=== PATIENT | female | born 1970 | race Caucasian/White ===

== ENCOUNTER 2016-12-09 17:09 | Emergency (ER) | payer MEDICARE, MEDICAID ==
[~2016-12-09] VITALS: Ht 157.5 cm; Wt 65.8 kg
[~2016-12-09 17:09] MED LIST: ATIVAN0.5 MG PO; ATIVAN1 M1 PO; BACTRIM DS 8001 TA1 PO; CELEXA10 MG PO; CELEXA20 MG PO; CELEXA40 MG PO; CLINDAMYCIN HC300 MG PO; CLONAZEPAM 1MG T1 MG PO; CLONIDINE HCL0.2 MG PO; CLONIDINE HYDR0.1 MG PO; COGENTIN GENERIC1 MG PO; COLACE100 MG PO; DEPO-PROVER150 MG/M2 IM; DIFLUCAN100 MG PO; DIPHENHYDRAMINE50 MG PO; EFFEXOR XR 75MG75 MG PO; FLEXERIL10 M1 PO; FLEXERIL10 MG PO; FLEXERIL5 MG PO; GEODON20 MG PO; GEODON80 MG PO; GLYCOLAX17 GM/DOSE PO; HALDOL 1MG. TABL1 MG PO; HYDROCODON-ACETAMINO PO; HYDROCODONE1 TABLET PO; HYDROXYZINE HYD25 M1 PO; IBU-4400 MG PO; IBU-8800 MG PO; IBUPROFEN 600M600 MG PO; IBUPROFEN400 MG PO; IBUPROFEN600 MG PO; KEFLEX 500MG.500 MG PO; KLONOPIN1 M1 PO; KLONOPIN1 MG PO; LEVOTHYROXIN0.025 M1 PO; LEVOTHYROXIN0.075 M2 PO; LORTAB 10/3251 TAB PO; LORTAB 5/500 501 TAB PO; LORTAB 7.5/3251 TAB PO; MEDROL 4MG. DOSE4 MG PO; MELOXICAM15 MG PO; METHADONE10 MG PO; NEURONTIN 300M300 MG PO; NEURONTIN800 MG PO; NORCO 325 MG-101 TAB PO; OMEPRAZOLE20 MG PO; OXYCODONE30 MG PO; PERCOCET 10 MG1 EACH PO; PERCOCET 325 MG1 TA3 PO; PERCOCET 5/3251 EACH PO; PHENERGAN 25MG.25 M1 PO; PRAVASTATIN 20M20 MG PO; PRAVASTATIN20 MG PO; PREDNISONE 20MG20 MG PO; PRENATAL VITAMI1 TA4 PO; PRENATAL1 TA4 PO; PROAIR HFA0.09 MG/AC INH; PROZAC 20MG CAP20 MG PO; REMERON30 MG; SAPHRIS5 MG SL; SEROQUEL XR150 MG PO; SPIRIVA HA1 PUFF/INH INH; SPIRONOLACTONE25 MG PO; SYNTHROID 0.00.05 MG PO; SYNTHROID0.05 MG PO; TIZANIDINE4 MG PO; TOPIRAGEN100 MG PO; TORADOL10 M1 PO; TRAMADOL 50MG T50 M1 PO; TRAMADOL 50MG T50 MG PO; TRAZODONE 50MG50 MG PO; TRAZODONE100 MG OR; TRILEPTAL150 MG PO; TRILEPTAL300 MG PO; Tramadol HCl50 MG PO; ULTRACET 325 MG1 TAB PO; VICODIN 7.5/501 EACH PO; VISTARIL25 MG PO; [UNRECOGNIZED DRUG - OTHER]
--- NOTE | 2016-12-09 17:42 | Emergency Room Report ---
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 N Clinical Suspician of Infection? N Mental Status: 1 - Regular (Normal Baseline) Sepsis Risk:Low Sepsis Risk Have you (or family members/close friends) recently traveled outside the [place]? N If Yes, where/when: Have you had exposure to infectious disease within the past month? N TB? Other? Specify: Comment The patient arrives by ambulance complaining of falls due to her RIGHT ankle and LEFT hip giving out. She has a history of chronic problems with both of these joints. She has had surgeries on her RIGHT ankle and recently on Thursday had a sprain of her RIGHT ankle. She says that she has been wearing an Vidal wrap on her ankle since then. She had been seen at urgent treatment center and had a negative x-ray for fracture. She says that her RIGHT ankle keeps giving out on her and causing her to fall. 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 She feels that she needs some sort of support for her RIGHT ankle. For previous sprain she has had a cast placed. She has an orthopedic doctor that is in [place]. She has crutches and started using those today which she says has Salter problem with falling. ALLERGIES Coded Allergies: Penicillins (03/15/16) Home Medications Reported Medications Spironolactone (Spironolactone) 25 MG PO BID Pravastatin Sodium 1 TAB PO DAILY ZIPRASIDONE HCL (Geodon) 2 TAB PO QHS Fluoxetine Hcl (Prozac 20MG Capsule(Generic)) 20 MG PO BID Gabapentin (Neurontin) 800 MG PO Q6H Omeprazole (Omeprazole 20MG) 20 MG PO BID #28 14 Days TRAZODONE HCL (Trazodone HCl) 50 MG PO QHS Clonazepam (Clonazepam 1MG) 1 MG PO TID BENZTROPINE MESYLATE (COGENTIN 1MG TAB) 1 MG PO BID Levothyroxine Sodium 0.075 MG PO DAILY #30 History Medical History General CAD? No Angina: Yes [place]: No Hypertension? No Hyperlipidemia? Yes CHF? No DVT? No PE? No COPD? No Asthma? No Anemia? Yes GERD? No Gastric ulcers? No GI Bleed? No Hernia? Yes Thyroid Problems? No Hypothyroidism? Yes CVA? No Seizures? Yes Diabetes? No Insulin Dependent: No Insulin Pump: No Home FSBS? No Renal Insuffiency? No End Stage Renal Disease? No UTI? No Stones? No BPH? No GB Disease: No Nephritic Syndrome? No Asplenia? No Hepatitis? No Sickle Cell Disease? No Arthritis? Yes Migraines? No Cataracts? No Glaucoma? No MRSA? No HIV? No TB? No Anxiety? No Depression? Yes Cancer? No More? 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 Also noted on review of her chart, 16 visits to the ED in 2016. Previous results of x-rays of LEFT hip reviewed. Review of Systems All Other Systems Reviewed and Negative Constitutional denies fever Musculoskeletal joint pain Physical Exam Vital Signs Vital Signs Date Time Temp Pulse Resp B/P Pulse O2 O2 Flow FiO2 Ox Delivery Rate 12/09 1711 98.6 79 18 111/73 100 General Appearance normal appearance Respiratory Status No: respiratory distress. Cardiovascular regular rate/rhythm Extremities diffuse tenderness of RIGHT ankle without edema or ecchymosis. Normal dorsalis pedis and posterior tibialis pulses. Normal sensation and capillary refill and warmth. No deformity. Neurologic alert Medical Decision Making LABS/Meds/Orders Pt receiving controlled substance in ED? No Results/Orders Orders Procedure Date/time Status STABILIZE JOINT 12/09 1735 Active Departure Departure Disposition DC Home or Self Care(routine) Clinical Impression Primary Impression: Right ankle sprain Qualifiers: Encounter type: initial encounter Involved ligament of ankle: unspecified ligament Qualified Code: S93.401A - Sprain of unspecified ligament of right ankle, initial encounter Secondary Impressions: Osteoarthritis of left hip Qualifiers: Osteoarthritis type: unspecified Qualified Code: M16.12 - Unilateral primary osteoarthritis, left hip Condition STABLE Referrals JESSE ACUNA (Family) Patient Instructions DI for Ankle Sprain, How to Use Crutches Additional Instructions Continue crutches. Orthopedic boot as needed. See your orthopedic physician as soon as possible for reevaluation. ED Critical Care Critical Care No at [id number]
--- NOTE | 2016-12-09 17:42 | Emergency Room Report ---
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 N Clinical Suspician of Infection? N Mental Status: 1 - Regular (Normal Baseline) Sepsis Risk:Low Sepsis Risk Have you (or family members/close friends) recently traveled outside the [place]? N If Yes, where/when: Have you had exposure to infectious disease within the past month? N TB? Other? Specify: Comment The patient arrives by ambulance complaining of falls due to her RIGHT ankle and LEFT hip giving out. She has a history of chronic problems with both of these joints. She has had surgeries on her RIGHT ankle and recently on Thursday had a sprain of her RIGHT ankle. She says that she has been wearing an Vidal wrap on her ankle since then. She had been seen at urgent treatment center and had a negative x-ray for fracture. She says that her RIGHT ankle keeps giving out on her and causing her to fall. 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 She feels that she needs some sort of support for her RIGHT ankle. For previous sprain she has had a cast placed. She has an orthopedic doctor that is in [place]. She has crutches and started using those today which she says has Salter problem with falling. ALLERGIES Coded Allergies: Penicillins (03/15/16) Home Medications Reported Medications Spironolactone (Spironolactone) 25 MG PO BID Pravastatin Sodium 1 TAB PO DAILY ZIPRASIDONE HCL (Geodon) 2 TAB PO QHS Fluoxetine Hcl (Prozac 20MG Capsule(Generic)) 20 MG PO BID Gabapentin (Neurontin) 800 MG PO Q6H Omeprazole (Omeprazole 20MG) 20 MG PO BID #28 14 Days TRAZODONE HCL (Trazodone HCl) 50 MG PO QHS Clonazepam (Clonazepam 1MG) 1 MG PO TID BENZTROPINE MESYLATE (COGENTIN 1MG TAB) 1 MG PO BID Levothyroxine Sodium 0.075 MG PO DAILY #30 History Medical History General CAD? No Angina: Yes [place]: No Hypertension? No Hyperlipidemia? Yes CHF? No DVT? No PE? No COPD? No Asthma? No Anemia? Yes GERD? No Gastric ulcers? No GI Bleed? No Hernia? Yes Thyroid Problems? No Hypothyroidism? Yes CVA? No Seizures? Yes Diabetes? No Insulin Dependent: No Insulin Pump: No Home FSBS? No Renal Insuffiency? No End Stage Renal Disease? No UTI? No Stones? No BPH? No GB Disease: No Nephritic Syndrome? No Asplenia? No Hepatitis? No Sickle Cell Disease? No Arthritis? Yes Migraines? No Cataracts? No Glaucoma? No MRSA? No HIV? No TB? No Anxiety? No Depression? Yes Cancer? No More? 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 Also noted on review of her chart, 16 visits to the ED in 2016. Previous results of x-rays of LEFT hip reviewed. Review of Systems All Other Systems Reviewed and Negative Constitutional denies fever Musculoskeletal joint pain Physical Exam Vital Signs Vital Signs Date Time Temp Pulse Resp B/P Pulse O2 O2 Flow FiO2 Ox Delivery Rate 12/09 1711 98.6 79 18 111/73 100 General Appearance normal appearance Respiratory Status No: respiratory distress. Cardiovascular regular rate/rhythm Extremities diffuse tenderness of RIGHT ankle without edema or ecchymosis. Normal dorsalis pedis and posterior tibialis pulses. Normal sensation and capillary refill and warmth. No deformity. Neurologic alert Medical Decision Making LABS/Meds/Orders Pt receiving controlled substance in ED? No Results/Orders Orders Procedure Date/time Status STABILIZE JOINT 12/09 1735 Active Departure Departure Disposition DC Home or Self Care(routine) Clinical Impression Primary Impression: Right ankle sprain Qualifiers: Encounter type: initial encounter Involved ligament of ankle: unspecified ligament Qualified Code: S93.401A - Sprain of unspecified ligament of right ankle, initial encounter Secondary Impressions: Osteoarthritis of left hip Qualifiers: Osteoarthritis type: unspecified Qualified Code: M16.12 - Unilateral primary osteoarthritis, left hip Condition STABLE Referrals JESSE ACUNA (Family) Patient Instructions DI for Ankle Sprain, How to Use Crutches Additional Instructions Continue crutches. Orthopedic boot as needed. See your orthopedic physician as soon as possible for reevaluation. ED Critical Care Critical Care No at [id number]
[2016-12-09 18:04] VITALS: BP 104/68
[2016-12-30] MEDS ORDERED: NAPROXEN SODIU500 MG PO (20:13)
== END 2016-12-09 18:15 | disposition home or self-care (01) ==
LOC: ER 17:09
PROC: 2W3SX1Z Immobilization of Right Foot using Splint (ICD-10-PCS; principal; 2016-12-09)
DX: S93.401A Sprain of unspecified ligament of right ankle, initial encounter (principal); M16.12 Unilateral primary osteoarthritis, left hip

== ENCOUNTER 2017-08-20 01:55 | Emergency (ER) | payer MEDICARE, MEDICAID ==
[~2017-08-20] VITALS: Ht 157.5 cm; Wt 65.8 kg
[~2017-08-20 01:55] MED LIST changes: +ETODOLAC400 MG PO; +NAPROXEN SODIU500 MG PO; +TORADOL10 MG PO
--- NOTE | 2017-08-20 03:40 | Emergency Room Report ---
History of Present Illness Time Seen by [id number] Presenting Problem in Triage Pt arrived:Walked Presenting Problem:C/O BACK PAIN AND HIP PAIN X 3 NIGHT. 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 B/P: 103/62 MAP: 98 Pulse: 86 Resp: 16 Recent fever? N Clinical Suspician of Infection? N Mental Status: 1 - Regular (Normal Baseline) Sepsis Risk:Low Sepsis Risk Have you (or family members/close friends) recently traveled outside the [place]? N If Yes, where/when: Have you had exposure to infectious disease within the past month? TB? Other? Specify: Source patient, RN notes reviewed, EMS, old records Exam Limitations no limitations Comment pt with acute excerbation of her ongoing hip and back pain with no acute fever or rash Cardiac Chest Pain Chest pain indicative of cardiac No Timing/Duration this evening Severity moderate ALLERGIES Coded Allergies: Penicillins (04/26/17) tramadol (From ULTRAM) (SEIZURES 04/26/17) Home Medications Reported Medications Spironolactone (Spironolactone) 25 MG PO BID Pravastatin Sodium 1 TAB PO DAILY ZIPRASIDONE HCL (Geodon) 2 TAB PO QHS Fluoxetine Hcl (Prozac 20MG Capsule(Generic)) 20 MG PO BID Gabapentin (Neurontin) 800 MG PO Q6H Omeprazole (Omeprazole 20MG) 20 MG PO BID #28 14 Days TRAZODONE HCL (Trazodone HCl) 50 MG PO QHS Clonazepam (Clonazepam 1MG) 1 MG PO TID BENZTROPINE MESYLATE (COGENTIN 1MG TAB) 1 MG PO BID Levothyroxine Sodium 0.075 MG PO DAILY #30 History Medical History General CAD? No Angina: Yes [place]: No Hypertension? No Hyperlipidemia? Yes CHF? No DVT? No PE? No COPD? No Asthma? No Anemia? Yes GERD? No Gastric ulcers? No GI Bleed? No Hernia? Yes Thyroid Problems? No Hypothyroidism? Yes CVA? No Seizures? Yes Diabetes? No Insulin Dependent: No Insulin Pump: No Home FSBS? No Renal Insuffiency? No End Stage Renal Disease? No UTI? No Stones? No BPH? No GB Disease: No Nephritic Syndrome? No Asplenia? No Hepatitis? No Sickle Cell Disease? No Arthritis? Yes Migraines? No Cataracts? No Glaucoma? No MRSA? No HIV? No TB? No Anxiety? No Depression? Yes Cancer? No More? 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 Respiratory denies cough, denies shortness of breath Cardiovascular denies chest pain, denies palpitations, denies syncope Gastrointestinal denies abdominal pain, denies diarrhea, denies vomiting Genitourinary denies: dysuria, frequency, hesitancy, hematuria. Musculoskeletal see HPI, back pain, denies joint pain, denies joint swelling, neck pain Skin denies rash Psychiatric/Neurological denies headache, denies seizure Physical Exam Vital Signs Vital Signs Date Time Temp Pulse Resp B/P Pulse O2 O2 Flow FiO2 Ox Delivery Rate 08/20 0304 86 16 103/62 93 08/20 0233 16 08/20 0158 98.0 81 18 122/86 96 - WBC >12,000 or <4,000 or 10% bands? 2 or more SIRS Criteria Met? B/P:103/62 MAP:98 Creatinine >2.0? UA output<0.5ml/kg/hr for 2 hrs? Platelet count >100,000? Lactate >2.0mmol/1? INR >1.2 or PTT > than 60 sec? Evidence of Organ Dysfunction? Provider documented clinical suspician of infection? N Sepsis Criteria Count: 0 Sepsis Risk: Low Sepsis Risk General Appearance no apparent distress Eye Exam - bilateral eye PERRL, bilateral eye EOMI Ear, Nose, Throat normal ENT inspection Neck supple Respiratory Status No: respiratory distress. 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 No Results/Orders Current Medication Orders Sig/Hernandez Start time Last Medication Dose Route Stop Time Status Admin Ketorolac 60 MG ONCE ONE 08/20 230 DC 08/20 Tromethamine IM 08/20 231 023 Ketorolac 0 .STK-MED ONE 08/20 228 DC Tromethamine .ROUTE Departure Departure Time of Disposition 0334 Disposition DC Home or Self Care(routine) Clinical Impression Primary Impression: Hip pain, right Secondary Impressions: Back pain Qualifiers: Back pain location: back pain in unspecified location Chronicity: chronic Back pain laterality: unspecified Qualified Code: M54.9 - Dorsalgia, unspecified Condition STABLE Patient Instructions DI for Low Back Pain Additional Instructions please discuss with pcp about pain meds Discharge Counseling Counseled pt/family regarding diagnosis, test results, follow up needs ED Critical Care Critical Care No at [id number]
[2017-08-20 04:38] VITALS: BP 96/43
== END 2017-08-20 05:39 | disposition home or self-care (01) ==
LOC: ER 01:55
DX: M54.9 Dorsalgia, unspecified (principal); M25.551 Pain in right hip; Z88.0 Allergy status to penicillin; E78.5 Hyperlipidemia, unspecified; D64.9 Anemia, unspecified; F17.210 Nicotine dependence, cigarettes, uncomplicated
CPT/HCPCS: J0595